=== PATIENT | male | born 1985 | race Caucasian/White ===

== ENCOUNTER → 2017-06-03 16:45 | Outpatient (CLI) | payer OTHER, SELFPAY ==
--- NOTE | 2017-06-03 16:50 | RAD_ITS ---
STUDY: X-RAY - LUMBAR SPINE REASON FOR EXAM: Male, 32 years old. Back pain TECHNIQUE: 5 view(s) of the lumbar spine were obtained. COMPARISON: None FINDINGS: Normal lumbar lordosis. There is no substantial scoliosis. There is a normal alignment of the vertebrae. There is spina bifida occulta at S1. Normal vertebral bodies and endplates. Normal disc space heights. There is no demonstrated fracture. The soft tissue structures are unremarkable. RAD/L/S Spine Min 4 Views IMPRESSION: There is NO fracture or malalignment. Electronically Signed: Angus Blankenship MD at 7:20 EDT , Service support ,
== END ==
PROVIDERS: Family Provider Family Medicine; PCP Family Medicine; Visit Provider Family Medicine
DX: M54.5 Low back pain (principal)
CPT/HCPCS: 72110

== ENCOUNTER → 2019-02-23 18:04 | Outpatient (CLI) | payer OTHER, SELFPAY ==
[2015-12-12 17:05] VITALS: BMI 33.5
[2019-02-23 18:19] LABS: Hematocrit 44.9 % (40-54); Hemoglobin 15.1 g/dL (13.0-16.5); Mean Corp Hgb Conc 33.6 g/dL (32-36); Mean Corpuscular Hgb 30.1 pg (27.0-32.0); Mean Corpuscular Volume 89.4 fL (80-94); Mean Platelet Vol. 11.1 fl (6.2-12.0); Platelet Count 208 K/mm3 (150-450); RBC Distribution Width CV 12.6 % (11.6-14.6); RBC Distribution Width SD 41.3 fl (35.1-43.9); Red Blood Count 5.02 M/mm3 (4.6-6.2); White Blood Count 5.6 K/mm3 (4.4-11.0)
[2019-02-23 19:15] LABS: T4 Free Direct 0.73 ng/dL (0.76-1.46); Thyroid Stim Hormone (TSH) 2.71 uIU/mL (0.358-3.74)
[2019-02-23 19:23] LABS: Vitamin B12 580 pg/mL (211-911); Vitamin D,25 Hydroxy 19.9 ng/mL (29.95-100.01)
== END ==
PROVIDERS: Family Provider Family Medicine; PCP Family Medicine; Referring Provider Family Medicine; Visit Provider Family Medicine
DX: E03.9 Hypothyroidism, unspecified (principal)
CPT/HCPCS: 36415; 82306; 82607; 84403; 84439; 84443; 85027

== ENCOUNTER → 2019-05-11 15:59 | Outpatient (CLI) | payer OTHER, SELFPAY ==
[2015-12-12 17:05] VITALS: BMI 33.5
[2019-05-11 17:48] LABS: T4 Free Direct 0.83 ng/dL (0.76-1.46); Thyroid Stim Hormone (TSH) 2.61 uIU/mL (0.358-3.74)
[2019-05-11 18:19] LABS: Vitamin D,25 Hydroxy 23.9 ng/mL
== END ==
PROVIDERS: PCP Family Medicine; Referring Provider Family Medicine; Visit Provider Family Medicine
DX: E03.9 Hypothyroidism, unspecified (principal); E55.9 Vitamin D deficiency, unspecified
CPT/HCPCS: 36415; 82306; 84439; 84443

== ENCOUNTER → 2020-05-23 | Outpatient (CLI) | payer OTHER, SELFPAY ==
[2015-12-12 17:05] VITALS: BMI 33.5
== END | disposition home or self-care (01) ==
PROVIDERS: Visit Provider Family Medicine
DX: Z20.822 Contact with and (suspected) exposure to COVID-19 (principal)
CPT/HCPCS: 87633; 87635; U0002

== ENCOUNTER → 2020-05-24 12:15 | Outpatient (CLI) | payer OTHER, SELFPAY ==
[2015-12-12 17:05] VITALS: BMI 33.5
--- NOTE | 2020-05-24 12:20 | RAD_ITS ---
INDICATION: BRONCHITIS EXAMINATION/TECHNIQUE: X-RAY - XR Chest 2 Views COMPARISON: 03/06/2011. FINDINGS: Low lung volumes. The lungs are otherwise clear. The cardiomediastinal silhouette is unremarkable. No pleural effusion or pneumothorax. No acute osseous abnormalities. RAD/Chest PA and Lateral IMPRESSION: No acute radiographic abnormalities. Electronically Signed: Ry Simmons MD at 18:43 EDT Tel , Service support ,
== END ==
PROVIDERS: PCP Family Medicine; Referring Provider Family Medicine; Visit Provider Family Medicine
DX: J20.9 Acute bronchitis, unspecified (principal)
CPT/HCPCS: 71046

== ENCOUNTER → 2020-06-26 10:47 | Outpatient (CLI) | payer OTHER, SELFPAY ==
[2015-12-12 17:05] VITALS: BMI 33.5
[2020-06-26 15:41] LABS: Anion Gap 4 (5-15); BUN 11 mg/dL (7-18); BUN/Creat Ratio 10.8 RATIO (10-20); Calcium,Total 9.3 mg/dL (8.5-10.1); Chloride 108 mmol/L (98-107); Cholesterol 216 mg/dL (200); Creatinine, Serum 1.02 mg/dL (0.70-1.30); EST Glomerular Filtration Rate 88 mL/min (>60); Est Glom Filt Rate - Afr Amer 106 mL/min (>60); Glucose 89 mg/dL (74-106); High Density Lipoprotein 34 mg/dL; Sodium Level 140 mmol/L (136-145); T4 Free Direct 0.82 ng/dL (0.76-1.46); T4 Total, Thyroxin 7.2 ug/dL (4.5-12.1); Thyroid Stim Hormone (TSH) 1.94 uIU/mL (0.358-3.74); Triglycerides 102 mg/dL; Very Low Density Lipoprotein 20 mg/dL (5-40)
== END ==
LOC: MFPLAB 10:47
PROVIDERS: PCP Family Medicine; Referring Provider Family Medicine; Visit Provider Family Medicine
DX: E03.9 Hypothyroidism, unspecified (principal); E55.9 Vitamin D deficiency, unspecified
CPT/HCPCS: 80048; 80061; 82306; 84436; 84439; 84443

== ENCOUNTER 2021-03-28 14:47 | Outpatient (CLI) | payer OTHER, SELFPAY | END 2021-03-28 23:59 | disposition home or self-care (01) | LOC: LABSPEC 14:48 | PROVIDERS: PCP Family Medicine; Visit Provider Family Medicine | DX: Z20.822 Contact with and (suspected) exposure to COVID-19 (principal) | CPT/HCPCS: 87635; U0003; U0005 ==

== ENCOUNTER → 2021-10-10 | Outpatient (CLI) | payer OTHER, SELFPAY ==
[2021-10-10 12:49] LABS: Anion Gap 6 (5-15); BUN 15 mg/dL (7-18); BUN/Creat Ratio 13.9 RATIO (10-20); Calcium,Total 8.7 mg/dL (8.5-10.1); Chloride 108 mmol/L (98-107); Cholesterol 190 mg/dL (200); Creatinine, Serum 1.08 mg/dL (0.70-1.30); EST Glomerular Filtration Rate 82 mL/min (>60); Est Glom Filt Rate - Afr Amer 99 mL/min (>60); Glucose 104 mg/dL (74-106); High Density Lipoprotein 30 mg/dL; Potassium 4.3 mmol/L (3.5-5.1); Sodium Level 140 mmol/L (136-145); T4 Free Direct 0.91 ng/dL (0.76-1.46); Thyroid Stim Hormone (TSH) 2.04 uIU/mL (0.358-3.74); Triglycerides 117 mg/dL; Very Low Density Lipoprotein 23 mg/dL (5-40)
== END | disposition home or self-care (01) ==
PROVIDERS: PCP Family Medicine; Referring Provider Family Medicine; Visit Provider Family Medicine
DX: E03.9 Hypothyroidism, unspecified (principal); E55.9 Vitamin D deficiency, unspecified
CPT/HCPCS: 36415; 80048; 80061; 82306; 84439; 84443

== ENCOUNTER → 2023-03-04 | Outpatient (CLI) | payer BC, SELFPAY ==
[2023-03-04 15:50] LABS: Vitamin D,25 Hydroxy 27.4 ng/mL
[2023-03-04 16:15] LABS: Anion Gap 5 (5-15); BUN 13 mg/dL (7-18); BUN/Creat Ratio 13.8 RATIO (10-20); Chloride 109 mmol/L (98-107); Cholesterol 191 mg/dL (200); Creatinine, Serum 0.94 mg/dL (0.70-1.30); EST Glomerular Filtration Rate 95 mL/min (>60); Est Glom Filt Rate - Afr Amer 115 mL/min (>60); Free T3 2.7 pg/mL (2.18-3.98); Glucose 85 mg/dL (74-106); High Density Lipoprotein 32 mg/dL; Potassium 4.2 mmol/L (3.5-5.1); Sodium Level 141 mmol/L (136-145); T4 Free Direct 0.91 ng/dL (0.76-1.46); Triglycerides 114 mg/dL; Very Low Density Lipoprotein 23 mg/dL (5-40)
== END | disposition home or self-care (01) ==
PROVIDERS: Nurse Practitioner; PCP Family Medicine; Visit Provider Family Medicine
DX: Z91.038 Other insect allergy status (principal); E03.9 Hypothyroidism, unspecified; E78.5 Hyperlipidemia, unspecified; E55.9 Vitamin D deficiency, unspecified; Z13.1 Encounter for screening for diabetes mellitus
CPT/HCPCS: 36415; 80048; 80061; 82306; 83520; 84439; 84443; 84481

== ENCOUNTER → 2023-04-30 | Outpatient (CLI) | payer BC, SELFPAY ==
[2023-04-30 16:02] LABS: Thyroid Stim Hormone (TSH) 0.21 uIU/mL (0.358-3.74)
== END | disposition home or self-care (01) ==
LOC: MFPLAB 12:16
PROVIDERS: PCP Family Medicine; Visit Provider Family Medicine
DX: E03.9 Hypothyroidism, unspecified (principal)
CPT/HCPCS: 36415; 84443

== ENCOUNTER → 2023-09-06 | Outpatient (CLI) | payer BC, SELFPAY ==
[2023-09-06 13:03] LABS: Thyroid Stim Hormone (TSH) 4.01 uIU/mL (0.358-3.74)
--- NOTE | 2023-09-06 15:56 | RAD_ITS ---
STUDY: X-RAY - RIGHT SHOULDER REASON FOR EXAM: Male, 38 years old. PAIN TECHNIQUE: 4 view(s) of the shoulder. COMPARISON: None. FINDINGS: Normal glenohumeral articulation. Normal acromioclavicular joint. Normal acromion. Normal humeral head and visualized proximal humerus. The soft tissue structures are unremarkable. Normal visualized pulmonary apex. RAD/Shoulder min 2 Views IMPRESSION: Normal x-ray examination of the shoulder. Electronically Signed: Thai Lomeli MD at 16:54 EDT ,
== END | disposition home or self-care (01) ==
PROVIDERS: PCP Family Medicine; Referring Provider Family Medicine; Visit Provider Family Medicine
DX: M25.519 Pain in unspecified shoulder (principal); E03.9 Hypothyroidism, unspecified
CPT/HCPCS: 36415; 73030; 84443

== ENCOUNTER → 2024-09-07 | Outpatient (CLI) | payer BC, SELFPAY ==
[2024-09-07 19:06] LABS: Vitamin D,25 Hydroxy 24.3 ng/mL (30-100)
--- OUTSIDE RECORDS SUMMARY | 2024-09-07 20:43 | XMS RPT_ITS | CCD ---
Author Organization [facility] Inform ion Partnership [facility] Care Team Providers Care Final Assembly Worker Name Role Phone Ry Eduardo Consulting Unavailable Ry Eduardo Primary Care Unavailable José Miguel Leblanc Referring Unavailable José Miguel Leblanc Attending Unavailable Ry Eduardo Primary Care Unavailable Ry Eduardo Attending Unavailable Ry Eduardo Primary Care Unavailable MAGUE CUETO Consulting Unavailable Ry Eduardo Attending Unavailable Medications Current Medications Medication Drug Class(es) Dates Sig (Normalized) Sig (Original) cetirizine hydrochloride 10 mg oral capsule (2 sources) Histamine-1 Receptor Antagonist Start: 10-21-2015 take 1 capsule by mouth once daily Cetirizine (Zyrtec) 10 MG capsule Active 10 MG PO DAILY October 21, 2015 12:00am levothyroxine sodium 0.075 mg oral tablet (2 sources) l-Thyroxine Start: 10-21-2015 take 75 ug by mouth once daily Levothyroxine Active 75 MCG PO DAILY October 21, 2015 12:00am naproxen 500 mg oral tablet (2 sources) Nonsteroidal Anti-inflammatory Drug Start: 12-12-2015 take 500 mg by mouth twice daily as needed Naproxen Active 500 MG PO TWICE DAILY NEEDED December 12, 2015 12:00am promethazine hydrochloride 25 mg oral tablet (2 sources) Phenothiazine Start: 12-12-2015 take 25 mg by mouth every six hours as needed Promethazine Active 25 MG PO EVERY 6 HOURS NEEDED December 12, 2015 12:00am SUMAtriptan 50 mg oral tablet (2 sources) Serotonin-1b and Serotonin-1d Receptor Agonist Start: 10-21-2015 Sumatriptan Succinate Active 50 MG PO .X1 PRN October 21, 2015 12:00am Problems Active Problems Problem Classification Problem Date Documented Da te Episodic/Chronic Other non-traumatic joint disorders (1 source) Pain in unspecified shoulder; Translations: [Pain in unspecified shoulder] Onset: 09-20-2023 Episodic Thyroid disorders (1 source) Hypothyroidism, unspecified; Translations: [Hypothyroidism, unspecified] Onset: 05-05-2023 Chronic Past or Other Problems Problem Classification Problem Date Documented Da te Episodic/Chronic Allergic reactions (1 source) Other insect allergy status; Translations: [Other insect allergy status] Onset: 04-28-2023 Episodic Results Test Name Value Interpretation Reference Range Facility Shoulder min 2 Viewson 09-05 Shoulder min 2 Views [facility] [address], [place] [id number] Shoulder min 2 Views MR#: [id number] Acct: [id number] Name: RY GRAJEDA Rep #: [id number] : 1985 M 38 From: Thai Lomeli MD PCP: Dr. Ry Eduardo MD Status: REG CLI Study: Shoulder min 2 Views Date of Exam: 09/06/23 Exam# [id number] Ordering Dr: José Miguel Leblanc MD :[id number] STUDY: X-RAY - RIGHT SHOULDER REASON FOR EXAM: Male, 38 years old. PAIN TECHNIQUE: 4 view(s) of the shoulder. COMPARISON: None. FINDINGS: Normal glenohumeral articulation. Normal acromioclavicular joint. Normal acromion. Normal humeral head and visualized proximal humerus. The soft tissue structures are unremarkable. Normal visualized pulmonary apex. RAD/Shoulder min 2 Views IMPRESSION: Normal x-ray examination of the shoulder. Electronically Signed: Thai Lomeli MD at 16:54 EDT , CC: Dr. Ry Eduardo MD; Dr. José Miguel Leblanc MD School Photograph Editor: Signed Normal [facility] Thyroid Stim Hormone (TSH)on 09-06-2023 TSH 4.01 uIU/mL High 0.358-3.74 [facility] Comment on above: Order Comment: Order Date: 03/04/23 Order Info: 0667-1 - BMP Order Info: 02972-2 - LIPID Order Info: 3051-0 - T3F Order Info: 3016-3 - TSH Order Info: 3024-7 - T4F Performed By: #### L 506.0400, L501.28570 #### [facility] [address] [facility] [place], [place], [address] Serum or plasma thyroid stim ulating hormone (TSH) measurement (units/volume)Ordered By: Mac Eduardo on 04-30-2023 TSH Qn 0.21 uIU/mL 0.358-3.74 [facility] Thyroid Stim Hormone (TSH)on 04-30-2023 TSH 0.21 uIU/mL Low 0.358-3.74 [facility] Comment on above: Order Comment: Order Date: 03/08/23 Order Info: 3016-3 - TSH Comments: needs done for 2 months Performed By: #### L 501.9520 #### [facility] [address] [place], [place], [address] Miscellaneous Lab Procedureo n 03-10-2023 [facility] LAB TEST Normal [facility] Comment on above: Order Comment: #[id number] BEE PROFILE SERUM RT #[id number] BEE PROFILE SERUM RT Result Comment: TEST RESULTS LIMITS Class Description: Levels of Specific IgE Class Description of Class ----- < 0.10 0 Negative 0.10 - 0.31 0/I Equivocal/Low 0.32 - 0.55 I Low 0.56 - 1.40 II Moderate 1.41 - 3.90 III High 3.91 - 19.00 IV Very High 19.01 - 100.00 V Very High >100.00 Very High B131-DyL Honeybee <0.10 kU/L Class 0 X852-ItE Hornet, White Face 0.10 Abnormal kU/L Class 0/I E426-BqA Yellow Jacket 1.07 Abnormal kU/L Class II U507-KzO Paper Wasp <0.10 kU/L Class 0 A505-JfT Hornet, Yellow <0.10 kU/L Class 0 *Z583-RvD Bumblebee <0.10 kU/L Class 0 * Tests with asterisk (*) were developed and had performance characteristics determined by [facility]. These tests have not been cleared or approved by the U.S. Food and Drug Administration. The FDA has determined that such clearance or approval is not necessary. These tests are used for clinical purposes. These tests should not be regarded as investigational or for research. TESTING PERFORMED AT [facility]. ORIGINAL REPORT ON FILE IN LAB CONTAINS ADDITIONAL TEST SITE INFORMATION. Performed By: #### L 3400.5105, L801.1541 #### [facility] [address] [place], [address] Tryptaseon 03-09-2023 TRYPTASE 4.6 ug/L Normal 2.2-13.2 [facility] Comment on above: Result Comment: Perf ormed at: - [address] [id number] Mis Manager: Trell Domínguez MD, Phone: [phone] Performed By: #### L 3400.5105, L801.1541 #### [facility] [address] [place], [address] Basic Metabolic Profile (BMP )on 03-04-2023 BUN/CRE 13.8 RATIO Normal 10-20 [facility] Comment on above: Order Comment: Order Date: 03/04/23 Order Info: 0667- - BMP Order Info: [id number] - LIPID Order Info: 3051-0 - T3F Order Info: 3016-3 - TSH Order Info: 3024-7 - T4F Performed By: #### L 500.4100, L500.2500, L501.9520 #### [facility] [address] [place], [address] CA,Total 9.0 mg/dL Normal 8.5-10.1 [facility] Comment on above: Order Comment: Order Date: 03/04/23 Order Info: 666-02 - BMP Order Info: - LIPID Order Info: 3051-0 - T3F Order Info: 3016-3 - TSH Order Info: 3024-7 - T4F Performed By: #### L 500.4100, L500.2500, L501.9520 #### [facility] [address] [place], [address] Chloride [Moles/Vol] 109 mmol/L High 98-107 [facility] Comment on above: Order Comment: Order Date: 03/04/23 Order Info: 06 - BMP Order Info: 92188-1 - LIPID Order Info: 3051-0 - T3F Order Info: 3016-3 - TSH Order Info: 3024-7 - T4F Performed By: #### L 500.4100, L500.2500, L501.9520 #### [facility] [address] [place], [address] CO2 [Moles/Vol] 27.0 mmol/L Normal 21.0-32.0 [facility] Comment on above: Order Comment: Order Date: 03/04/23 Order Info: 666- - BMP Order Info: 09321-8 - LIPID Order Info: 3051-0 - T3F Order Info: 3 - TSH Order Info: 7 - T4F Performed By: #### L 500.4100, L500.2500, L501.9520 #### [facility] [address] [place], [address] Creatinine [Mass/Vol] 0.94 mg/dL Normal 0.70-1.30 [facility] Comment on above: Order Comment: Order Date: 03/04/23 Order Info: 666-02 - BMP Order Info: 23018-9 - LIPID Order Info: 3050-0 - T3F Order Info: 3 - TSH Order Info: 7 - T4F Result Comment: The validity of the calculated GFR GFRAA in patients over 70 years has not been determined. Clinical correlation is essential. Performed By: #### L 500.4100, L500.2500, L501.9520 #### [facility] [address] [place], [address] EST GFR - AA 115 mL/min Normal >60 [facility] Comment on above: Order Comment: Order Date: 03/04/23 Order Info: 666-02 - BMP Order Info: - LIPID Order Info: 3050-0 - T3F Order Info: 3 - TSH Order Info: 7 - T4F Result Comment: Afri can Moroccan GFR Calc Performed By: #### L 500.4100, L500.2500, L501.9520 #### [facility] [address] [place], [address] GAP 5 Normal 5-15 [facility] Comment on above: Order Comment: Order Date: 03/04/23 Order Info: 666-02 - BMP Order Info: 91145-6 - LIPID Order Info: 3051-0 - T3F Order Info: 3 - TSH Order Info: 7 - T4F Performed By: #### L 500.4100, L500.2500, L501.9520 #### [facility] [address] [place], [address] GFR/1.73 sq M.predicted among non-blacks MDRD (S/P/Bld) [Vol rate/Area] 95 mL/min/{1.73_m2} Normal >60 [facility] Comment on above: Order Comment: Order Date: 03/04/23 Order Info: 0667- - BMP Order Info: 97388-8 - LIPID Order Info: 3051-0 - T3F Order Info: 301-3 - TSH Order Info: 3024-7 - T4F Result Comment: Non- GFR Calc Performed By: #### L 500.4100, L500.2500, L501.9520 #### [facility] [address] [place], [address] Glucose [Mass/Vol] 85 mg/dL Normal 74-106 [facility] Comment on above: Order Comment: Order Date: 03/04/23 Order Info: 666-02 - BMP Order Info: - LIPID Order Info: 3051-0 - T3F Order Info: 3 - TSH Order Info: 7 - T4F Performed By: #### L 500.4100, L500.2500, L501.9520 #### [facility] [address] [place], [address] Potassium [Moles/Vol] 4.2 mmol/L Normal 3.5-5.1 [facility] Comment on above: Order Comment: Order Date: 03/04/23 Order Info: 666-02 - BMP Order Info: 48220-2 - LIPID Order Info: 3051-0 - T3F Order Info: 3016-3 - TSH Order Info: 3024-7 - T4F Performed By: #### L 500.4100, L500.2500, L501.9520 #### [facility] [address] [place], [address] Sodium [Moles/Vol] 141 mmol/L Normal 136-145 [facility] Comment on above: Order Comment: Order Date: 03/04/23 Order Info: 06 - BMP Order Info: 05710-9 - LIPID Order Info: 3050-0 - T3F Order Info: 3 - TSH Order Info: 3023-08 - T4F Performed By: #### L 500.4100, L500.2500, L501.9520 #### [facility] [address] [place], [address] Urea nitrogen [Mass/Vol] 13 mg/dL Normal 7-18 [facility] Comment on above: Order Comment: Order Date: 03/04/23 Order Info: 0667 - BMP Order Info: 74815-0 - LIPID Order Info: 0 - T3F Order Info: 3015-04 - TSH Order Info: 3023-08 - T4F Performed By: #### L 500.4100, L500.2500, L501.9520 #### [facility] [address] [place], [address] Basophil percentageOrdered B y: Mac Eduardo on 03-04-2023 Chloride [Moles/Vol] 109 mmol/L 98-107 [facility] Cholesterol [Mass/Vol] 191 mg/dL <200 [facility] Comment on above: <200 mg/dL Desirable 200-240 mg/dL Borderline >240 mg/dL High Risk Glucose [Mass/Vol] 85 mg/dL 74-106 [facility] Potassium [Moles/Vol] 4.2 mmol/L 3.5-5.1 [facility] Sodium [Moles/Vol] 141 mmol/L 136-145 [facility] Triglyceride [Mass/Vol] 114 mg/dL <199 [facility] Comment on above: The drugs N-Acetylcy steine and Metamizole may falsely depress this assay.Serum Triglycerides Reference Interval Normal <150 mg/dL Borderline high 150 - 199 mg/dL High 200 - 499 mg/dL Very High > or = 500 mg/dL Free T3on 03-04-2023 Free T3 [Mass/Vol] 2.7 pg/mL Normal 2.18-3.98 [facility] Comment on above: Order Comment: Order Date: 03/04/23 Order Info: 666-02 - BMP Order Info: - LIPID Order Info: 0 - T3F Order Info: 3 - TSH Order Info: 3023-08 - T4F Performed By: #### L 506.0400, L501.71656 #### [facility] [address] [place], [place], [address] Laboratory - Chemistry and C hemistry - challengeOrdered By: Mac Eduardo on 03-04-2023 CO2 [Moles/Vol] 27.0 mmol/L 21.0-32.0 [facility] Free T4 [Mass/Vol] 0.91 ng/dL 0.76-1.46 [facility] Urea nitrogen/Creatinine [Mass ratio] 13.8 mg/mg 10- [facility] Lipid Profileon 03-04-2023 Cholesterol [Mass/Vol] 191 mg/dL Normal 200 [facility] Comment on above: Order Comment: Order Date: 03/04/23 Order Info: 666-02 - BMP Order Info: - LIPID Order Info: 0 - T3F Order Info: 3015-04 - TSH Order Info: 3023-08 T4F Result Comment: <200 mg/dL Desirable 200-240 mg/dL Borderline >240 mg/dL High Risk Performed By: #### L 500.4100, L500.2500, L501.9520 #### [facility] [address] [place], [place], [address] Cholesterol in HDL [Mass/Vol] 32 mg/dL Low [facility] Comment on above: Order Comment: Order Date: 03/04/23 Order Info: 666-02 - BMP Order Info: - LIPID Order Info: 0 - T3F Order Info: 3 - TSH Order Info: 7 - T4F Result Comment: The drugs N-Acetylcysteine and Metamizole may falsely depress this assay. Reference Range HDL <40 mg/dL Low HDL Cholesterol HDL >or= 60 mg/dL High HDL Cholesterol Performed By: #### L 500.4100, L500.2500, L501.9520 #### [facility] [address] [place], [address] Cholesterol in LDL [Mass/Vol] 136 mg/dL High 0-130 [facility] Comment on above: Order Comment: Order Date: 03/04/23 Order Info: 0667-1 - BMP Order Info: 67719-0 - LIPID Order Info: 3051-0 - T3F Order Info: 3015-3 - TSH Order Info: 7 - T4F Performed By: #### L 500.4100, L500.2500, L501.9520 #### [facility] [address] [place], [address] Cholesterol in VLDL [Mass/Vol] 23 mg/dL Normal 5-40 [facility] Comment on above: Order Comment: Order Date: 03/04/23 Order Info: 666-02 - BMP Order Info: - LIPID Order Info: 3051-0 - T3F Order Info: 3 - TSH Order Info: 7 - T4F Performed By: #### L 500.4100, L500.2500, L501.9520 #### [facility] [address] [place], [address] Triglyceride [Mass/Vol] 114 mg/dL Normal [facility] Comment on above: Order Comment: Order Date: 03/04/23 Order Info: 0667 - BMP Order Info: - LIPID Order Info: 3051-0 - T3F Order Info: 3 - TSH Order Info: 7 - T4F Result Comment: The drugs N-Acetylcysteine and Metamizole may falsely depress this assay. Serum Triglycerides Reference Interval Normal <150 mg/dL Borderline high 150 - 199 mg/dL High 200 - 499 mg/dL Very High > or = 500 mg/dL Performed By: #### L 500.4100, L500.2500, L501.9520 #### [facility] [address] [place], [address] No Panel InformationOrdered By: MAGUE CUETO on 03-04-2023 Miscellaneous Test See comment [facility] Comment on above: TEST RESULTS [facility] lass Description: Levels of Specific IgE Class Description of Class ----- < 0.10 0 Negative 0.10 - 0.31 0/I Equivocal/Low 0.32 - 0.55 I Low 0.56 - 1.40 II Moderate 1.41 - 3.90 III High 3.91 - 19.00 IV Very High19.01 - 100.00 V Very High >100.00 Very MfhxB695-WxC Honeybee <0.10 kU/L Class 9S062-YyX Hornet, White Face 0.10 Abnormal kU/L Class 0/JL452-WmR Yellow Jacket 1.07 Abnormal kU/L Class IIU824-CvI Paper Wasp <0.10 kU/L Class 9C868-AoV Hornet, Yellow <0.10 kU/L Class 0*Y239-ZpT Bumblebee <0.10 kU/L Class 0*Tests with asterisk (*) were developed and had performancecharacteristics determined by [facility]. These tests have not been cleared or approved by the U.S. Food and Drug Administration.The FDA has determined that such clearance or approval is notnecessary. These tests are used for clinical purposes. These tests should not be regarded as investigational or for research. TESTING PERFORMED AT [facility]. ORIGINAL REPORT ON FILE IN LAB CONTAINS ADDITIONAL TEST SITE INFORMATION. ____ Tryptase 4.6 ug/L 2.2-13.2 [facility] Comment on above: Performed at: [facility] [address] [id number] Director: Trell Domínguez MD, Phone: [phone] No Panel InformationOrdered By: Mac Eduardo on 03-04-2023 Estimated GFR (MDRD) Amer 115 mL/min >60 [facility] Comment on above: GFR Calc Estimated GFR (MDRD) Non-Af Amer 95 mL/min >60 [facility] Comment on above: Non- GFR Calc Free Triiodothyronine (T3) pg/dL 2.7 pg/mL 2.18-3.98 [facility] Thyroid Stimulating Hormone (TSH) 3.20 uIU/mL 0.358-3.74 [facility] Vitamin D 25-Hydroxy 27.4 ng/mL [facility] Comment on above: Vitamin D 25(OH) Sta tus Range Deficiency <20 ng/mL (50nmol/L) Insufficiency 20 - 30 ng/mL (50 - 75 nmol/L) Sufficiency 30 - 100 ng/mL (75 - 250 nmol/L) Toxicity >100 ng/mL (>250 nmol/L) Serum or plasma calcium flakita urement (mass/volume)Ordered By: Mac Eduardo on 03-04-2023 Calcium [Mass/Vol] 9.0 mg/dL 8.5-10.1 [facility] Serum or plasma cholesterol in HDL measurement (mass/volume)Ordered By: Mac Eduardo on 03-04-2023 Cholesterol in HDL [Mass/Vol] 32 mg/dL >40 [facility] Comment on above: The drugs N-Acetylcy steine and Metamizole may falsely depress this assay. Reference Range HDL <40 mg/dL Low HDL Cholesterol HDL >or= 60 mg/dL High HDL Cholesterol Serum or plasma cholesterol in VLDL measurement (mass/volume)Ordered By: Mac Eduardo on 03-04-2023 Cholesterol in VLDL [Mass/Vol] 23 mg/dL 5-40 [facility] Serum or plasma creatinine m easurement (mass/volume)Ordered By: Mac Eduardo on 03-04-2023 Creatinine [Mass/Vol] 0.94 mg/dL 0.70-1.30 [facility] Comment on above: The validity of the calculated GFR & GFRAA in patients over 70 years has not been determined. Clinical correlation is essential. Serum or plasma low density lipoprotein (LDL) cholesterol measurement (mass/volume)Ordered By: Mac Eduardo on 03-04-2023 Cholesterol in LDL [Mass/Vol] 136 mg/dL 0-130 [facility] Serum or plasma urea nitroge n measurement (mass/volume)Ordered By: Mac Eduardo on 03-04-2023 Urea nitrogen [Mass/Vol] 13 mg/dL 7-18 [facility] T4 Free Directon 03-04-2023 T4 FREE DIRECT 0.91 ng/dL Normal 0.76-1.46 [facility] Comment on above: Order Comment: Order Date: 03/04/23 Order Info: 0667-1 - BMP Order Info: 28174-5 - LIPID Order Info: 305-0 - T3F Order Info: 3015-3 - TSH Order Info: 3023-08 - T4F Performed By: #### L 506.0400, L501.34417 #### [facility] [address] [place], [place], [address] Thin prep Papanicolaou smear with manual screeningOrdered By: Mac Eduardo on 03-04-2023 Thin prep Papanicolaou smear with manual screening 5 5-15 [facility] Thyroid Stim Hormone (TSH)on 03-04-2023 TSH 3.20 uIU/mL Normal 0.358-3.74 [facility] Comment on above: Order Comment: Order Date: 03/04/23 Order Info: 0667-1 - BMP Order Info: 70669-8 - LIPID Order Info: 3051-0 - T3F Order Info: 3015-3 - TSH Order Info: 3023-08 - T4F Performed By: #### L 500.4100, L500.2500, L501.9520 #### [facility] [address] [place], [address] Vitamin D,25 Hydroxyon 03-04 Vitamin D 25-OH 27.4 ng/mL Normal [facility] Comment on above: Order Comment: Order Date: 03/04/23 Order Info: [id number] - VITD25 Result Comment: Nell min D 25(OH) Status Range Deficiency <20 ng/mL (50nmol/L) Insufficiency 20 - 30 ng/mL (50 - 75 nmol/L) Sufficiency 30 - 100 ng/mL (75 - 250 nmol/L) Toxicity >100 ng/mL (>250 nmol/L) Performed By: #### L 506.1000 #### [facility] [address] [place], [address] Encounters Encounter Date Encounter Type Care Provider Facility Start: 09-06-2023 End: 09-06-2023 ambulatory [facility] Facility:[facility] Start: 04-30-2023 End: 04-30-2023 ambulatory [facility] Work Phone: Start: 04-30-2023 End: 04-30-2023 Patient encounter procedure [facility] Start: 04-30-2023 End: 04-30-2023 ambulatory [facility] Facility:[facility] Start: 03-04-2023 End: 03-04-2023 ambulatory [facility] Work Phone: Start: 03-04-2023 End: 03-04-2023 Patient encounter procedure [facility] Start: 03-04-2023 End: 03-04-2023 ambulatory [facility] Facility:[facility] Plan of Treatment Date Care Activity Detail Author Start: 03-04-2023 Procedure [facility] Payers Date Payer Category Payer Unknown [id number] 2023 Self-pay [id number] 2023 Unknown [id number] 2010 Unknown [employer] [id number] Private Health Insurance [facility] [id number] [facility] [id number] Unknown [id number] Unknown [id number] Unknown [id number] Social History Date Type Detail Facility Start: 12-12-2015 End: 12-12-2015 Tobacco smoking status NMIS Unknown if ever smoked [facility] Start: 1985 Sex Assigned At Male [facility] Evaluation note Note Date & Type Note Facility Evaluation note No assessment information availa ble [facility] Work Phone: Summary Purpose Family History No Family History Records Found Advance Directives No Advanced Directives Records Found Additional Source Comments Care Teams (unrecognized sec tion and content) Team Status: Active Member Role Status Dates Dr. Mac Eduardo MD Family Provider Active Dr. Mac Eduardo MD Primary Care Provider Activ e Team Status: Inactive Member Role Status Dates Dr. Mac Eduardo MD Primary Care Provider, Attdenise whitman Provider Active NICKIE TOMLINSON Other Provider Active Team Status: Inactive Member Role Status Dates Dr. Mac Eduardo MD Primary Care Provider, Atte nding Provider Active Goals (unrecognized section and content) Goals may be documented in a n alternate sectionGoals may be documented in an alternate section (unrecognized sect ion and content) No Status Records Found INFORMATION SOURCE (unrecogn ized section and content) DATE CREATED AUTHOR 09/22/2023 [facility] FOR RECORDS PERTAINING TO PATIENTS WHO ARE OR HAVE BEEN ENROLLED IN A CHEMICAL DEPENDENCY/SUBSTANCEABUSE PROGRAM, SOME INFORMATION MAY BE OMITTED. This clinical summary was aggregated from multiple sources. Caution should be exercised in using it in the provision of clinical care. This summary normalizes information from multiple sources, and as a consequence, information in this document may materially change the coding, format and clinical context of patient data. In addition, data may be omitted in some cases. CLINICAL DECISIONS SHOULD BE BASED ON THE PRIMARY CLINICAL RECORDS. [facility] [employer] [facility]. provides no warranty or guarantee of the accuracy or completeness of information in this document.
== END | disposition home or self-care (01) ==
LOC: MFPLAB 16:00
PROVIDERS: PCP Family Medicine; Referring Provider Family Medicine; Visit Provider Family Medicine
DX: E03.9 Hypothyroidism, unspecified (principal); E55.9 Vitamin D deficiency, unspecified
CPT/HCPCS: 36415; 82306; 84439; 84443